=== PATIENT | female | born 1940 ===

== ENCOUNTER 2018-10-10 11:08 | Outpatient (CLI) | payer OTHER ==
[~2018-10-10] VITALS: Ht 165.1 cm; Wt 55.3 kg
== END 2018-10-10 11:20 | disposition home or self-care (01) ==
LOC: OFIC 805 11:08
DX: H61.23 Impacted cerumen, bilateral (principal); H90.3 Sensorineural hearing loss, bilateral

== ENCOUNTER 2018-10-17 09:35 | Outpatient (CLI) | payer OTHER ==
[~2018-10-17] VITALS: Ht 152.4 cm; Wt 77.1 kg
== END 2018-10-17 09:50 | disposition home or self-care (01) ==
LOC: OFIC 805 09:35
DX: H61.23 Impacted cerumen, bilateral (principal); H90.3 Sensorineural hearing loss, bilateral; H60.8X2 Other otitis externa, left ear

== ENCOUNTER 2018-10-17 10:55 | Outpatient (CLI) | payer OTHER | END 2018-10-17 11:10 | disposition home or self-care (01) | LOC: LAB 10:55 | DX: H61.92 Disorder of left external ear, unspecified (principal) ==

== ENCOUNTER 2018-10-21 10:17 | Outpatient (CLI) | payer OTHER ==
[~2018-10-21] VITALS: Ht 152.4 cm; Wt 55.3 kg
== END 2018-10-21 10:30 | disposition home or self-care (01) ==
LOC: OFIC 805 10:17
DX: H60.8X2 Other otitis externa, left ear (principal); B49 Unspecified mycosis; J30.89 Other allergic rhinitis

== ENCOUNTER 2018-11-05 09:35 | Outpatient (CLI) | payer OTHER ==
[~2018-11-05] VITALS: Ht 152.4 cm; Wt 55.3 kg
== END 2018-11-05 09:50 | disposition home or self-care (01) ==
LOC: OFIC 805 09:35
DX: B48.8 Other specified mycoses (principal); H61.23 Impacted cerumen, bilateral; H90.3 Sensorineural hearing loss, bilateral